=== PATIENT | male | born 1945 | race Caucasian/White ===

== ENCOUNTER 2024-03-12 13:09 | Outpatient (CLI) | payer MEDICARE, OTHER, SELFPAY | END 2024-03-12 13:10 | disposition home or self-care (01) | LOC: AMB 03-18 11:57 | PROVIDERS: PCP Family Medicine; Visit Provider Family Medicine | DX: K92.2 Gastrointestinal hemorrhage, unspecified (principal) | CPT/HCPCS: A0425; A0427 ==

== ENCOUNTER 2024-04-25 16:45 | Outpatient (CLI) | payer MEDICARE, OTHER, SELFPAY | END 2024-04-25 16:46 | disposition home or self-care (01) | LOC: AMB 05-04 06:32 | PROVIDERS: PCP Family Medicine; Visit Provider Emergency Medicine | DX: R07.89 Other chest pain (principal) | CPT/HCPCS: A0425; A0427 ==

== ENCOUNTER 2024-04-25 17:08 | Emergency (ER) | payer MEDICARE, OTHER, SELFPAY ==
[2024-04-25] VITALS (23 sets, daily range): BP systolic 172–205; BP diastolic 83–106; PULSE 60–68; RESP 14–24; TEMP 36.7; O2SAT 94–97
--- OUTSIDE RECORDS SUMMARY | 2024-04-25 17:11 | XMS_ITS | Clinical Summary ---
Author Organization [employer] [facility] Address [place], [place] [address] Care Team Providers Care Gang Investigator Name Role Phone Adryan Garcia MD Unavailable [phone] Jason Miller MD Primary Care Provider Allergies Active Allergy Reactions Criticality Noted Date Comments Venom-Honey Bee Chest Pain 09/19/2010 Clindamycin GI Upset 05/05/2007 Dapsone Other - Describe In Comment Field 03/30/2012 decreased O2 level and chest tightness Hylan G-F 20 Edema 11/28/2016 Iodinated Contrast Media Rash 04/04/2003 Diatrizoate Allergen Hives 10/23/2007 Lisinopril Intolerance-Can't Take 02/10/2017 Cough Clopidogrel Rash 10/23/2007 Primidone Nightmares 08/10/2013 Medications OMEPRAZOLE 20 MG CAP, DELAYED RELEASE take 1 capsule (20 mg) by oral route once daily before a meal 0 7 Active losartan (COZAAR) 100 mg tabletIndicatio ns:hypertension Take 1 tablet by mouth once daily. Indications: hypertension 90 tablet 3 7 Active hydroCHLOROthia zide (HCTZ) 25 mg tabletIndicatio ns:Hypertension Take 1 tablet by mouth once daily. 90 tablet 3 7 Active metoprolol (LOPRESSOR) 100 mg tablet Take 50 mg by mouth 2 times daily. 0 Active aspirin (ECOTRIN) 81 mg enteric coated tablet TAKE ONE TABLET BY MOUTH ONCE A DAY TO HELP PREVENT HEART ATTACK/STROKE Active levothyroxine (SYNTHROID) 175 mcg tablet TAKE ONE TABLET BY MOUTH EVERY MORNING ON AN EMPTY STOMACH FOR THYROID Active rosuvastatin (CRESTOR) 5 mg tablet Take 5 mg by mouth at bedtime. Active QUEtiapine (SEROQUEL) 400 mg tablet Take 400 mg by mouth once daily. 0 Active clotrimazole (LOTRIMIN) 1 % cream Apply a moderate amount to affected area daily for fungal infection of foot and ankels Active risperiDONE (RISPERDAL) 0.25 mg tablet Take 0.125 mg by mouth at bedtime. Active benztropine (COGENTIN) 1 mg tabletIndicatio ns:Tremor Take 2mg in the AM and 1mg at bedtime 0 2 Active Active Problems Problem Noted Date Diagnosed Date Food impaction of esophagus 10/15/2021 Microcytic anemia 09/28/2020 Melena 09/06/2020 Chest pain in adult 09/05/2020 Hallucinations 09/05/2020 Familial tremor 02/10/2017 Polyp of colon 06/03/2016 Fatty liver 08/17/2015 Post-traumatic osteoarthritis of right knee 12/23 Obesity 10/19/2013 Other psoriasis 06/01/2012 Gout 11/14/2011 History of gastrointestinal bleeding 11/14/2011 Overview (11/14/2011): [facility]: found to have bleeding diverticula on colonoscopy Hyperlipidemia 02/20/2010 Essential hypertension 02/20/2010 ASHD (arteriosclerotic heart disease) Overview (11/14/2011): Stent placed ~ 1999, angioplasty 2011 PAD (peripheral artery disease) Overview (11/14/2011): Bilateral stent placement. S/P angioplasty as well. Syncope Resolved Problems Problem Noted Date Diagnosed Date Resolved Date Hallucination 03/27/2017 09/05/2020 Hematochezia 04/17/2016 09/05/2020 Pain 01/12/2015 09/05/2020 Rash and other nonspecific skin eruption 03/04/2012 10/19/2013 Encounters Date Type Department Care Team Description 01/23/2024 Lab Requisition [facility] [phone] Justice Rios MD from Last 3 Months Immunizations Name Administration Dates Next Due AMB Influenza, IIV3 (Age >=3 years)(Flu Clinic Only) 01/22/2011,12/31/2008 COVID-19 vaccine (AdexLink-CasterStats NTech 30mcg/0.3mL) 12YO+ REID-SUCROSE PF, MDV 11/22/2021,06/06/2021 COVID-19 vaccine (E-Line Media NTech 30mcg/0.3mL) PF, MDV 10/24/2020,10/03/2020 Influenza A (H1N1), Inactivated 03/30/2009 Influenza Virus, Unspecified 12/26/2020, 12/06/2013,11/22/2012,2011,01/22/2011,01/09/2010,01/08/2008,1 ,01/15/2006,03/28/2005, 004,12/23/2003,01/22/2003,12/22/2002, Influenza, High-dose Inactivated 019,12/04/2017,12/09/2016,2015,01/12/2015 Influenza, High-dose Quadriv alent Inactivated 12/26/2020,12/13/2019 Influenza, IIV3 (Age >=3 years) 12/25/2011,12/23 Influenza, IIV4 12/08/2012 Pneumococcal Poly,23-Valent (Pneumovax) 10/24/2014,03/25/2010 Pneumococcal conj 13-Valent (Prevnar 13) 04/17/2016 Pneumococcal, Unspecified 03/28/2005 Tdap 07/07/2013 Tetanus Toxoid, Unspecified 01/11/1999 Zoster (Shingrix-RZV, recombinant) 06/06/2021, Family History Medical History Relation Name Comments Cancer Brother bladder Cancer Father colon, mets to liver Cancer Mother breast Cancer Sister 1 brain Cancer Sister 2 ?liver Cancer Sister 3 thyroid Relation Name Status Comments Brother Father Mother Sister 1 Sister 2 Sister 3 Social History Tobacco Use Types Packs/Day Years Used Date Smoking Tobacco: Former Cigarettes 1 50 0 09/07/1958 - 09/07/2008 Smokeless Tobacco: Never Tobacco Cessation:Counseling Given: No Comments:no passive exposure Alcohol Use Standard Drinks/Week Comments Yes 0 (1 standard drink = 0.6 oz pur e alcohol) very rare PHQ-2 Answer Date Recorded PHQ-2 TOTAL SCORE 2 06/06/2021 Social Connections Answer Date Recorded Frequency of Communication with Friends and Fami ly Not on file 03/24/2021 Financial Resource Strain Answer Date R ecorded Difficulty of Paying Living Expenses Not on file 03/24/2021 Difficulty of Paying Living Expenses Not on file 03/24/2021 Interpersonal Safety Answer Date Record ed Are you being hit, kicked, p ushed or yelled at (see row info)? 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[employer] Gender Identity Not on file Sexual Orientation Not on file Obstetrics History Last Filed Vital Signs Vital Sign Reading Time Taken Comments Blood Pressure 151/68 07/14/2023 9:00 PM CDT Pulse 78 07/14/2023 9:00 PM CDT Temperature 36.6 C (97.9 F) 07/14/2023 9:00 PM CDT Respiratory Rate 16 07/14/2023 9:00 PM CDT Oxygen Saturation 94% 07/14/2023 9:00 PM CDT Inhaled Oxygen Concentration - - Weight 99.8 kg (220 lb) 07/14/2023 9:00 PM CDT Height 177.8 cm (5' 10) 07/14/2023 9:00 PM CDT Body Mass Index 31.57 07/14/2023 9:00 PM CDT Plan of Treatment Health Maintenance Due Date Last Done Comments Low Dose CT (for lung CA) ag e 50-80 09/14/1993 Medicare Wellness for age 65+ 09/14/2008 RSV vaccine for adults or (1 - 1-dose 75+ series) 09/14/2018 BMI (ht and wt on same day) for age 18+ 09/12/2021 09/12/2020, 09/11/2016, 07/07/2016, Additional history exists Depression screening for age 12+ 06/06/2022 06/06/2021, 03/27/2017, 02/10/2017 Tetanus booster 07/08/2023 07/07/2013, 04/24 (Declined) COVID-19 vaccine series ( season) 2023 10/07/2022, 06/06/2022, 11/22/2021, Additional history exists Influenza for age 65+ 11/23/2023 12/26/2020 , 12/26/2020, 12/13/2019, Additional history exists Tdap Completed 07/07/2013 Pneumococcal series for age 50+ Completed 04/17/2016, 10/24/2014, 03/25/2010, Additional history exists Zoster (shingles) series for age 50+ Completed 06/06/2021, 12/26/2020 Procedures Procedure Name Priority Date/Time Associated Diagnosis Comments RED CELL MORPHOLOGY Routine 01/27/2024 1 1:35 AM BIRDCAGE ASSEMBLER Anemia, unspecified Chronic kidney disease, stage 3a (HC) Hypothyroidism, unspecified PLATELET ESTIMATE Routine 01/27/2024 11: 35 AM [employer]IRDCAGE ASSEMBLER Anemia, unspecified Chronic kidney disease, stage 3a (HC) Hypothyroidism, unspecified MANUAL DIFFERENTIAL Routine 01/27/2024 1 1:35 AM BIRDCAGE ASSEMBLER Anemia, unspecified Chronic kidney disease, stage 3a (HC) Hypothyroidism, unspecified CBC WITH AUTO DIFFERENTIAL Routine 01/27/2024 11:35 AM BIRDCAGE ASSEMBLER Anemia, unspecified Chronic kidney disease, stage 3a (HC) Hypothyroidism, unspecified BASIC METABOLIC PANEL Routine 01/27/2024 11:35 AM B[employer]DCAGE ASSEMBLER Anemia, unspecified Chronic kidney disease, stage 3a (HC) Hypothyroidism, unspecified TSH Routine 01/27/2024 11:35 AM BIRDCAGE ASSEMBLER Anemia, unspecified Chronic kidney disease, stage 3a (HC) Hypothyroidism, unspecified CBC WITH AUTO DIFFERENTIAL Routine 01/27/2024 11:35 AM BIRDCAGE ASSEMBLER Anemia, unspecified Chronic kidney disease, stage 3a (HC) Hypothyroidism, unspecified from Last 3 Months Results * (ABNORMAL) CBC WITH AUTO DIFFERENTIAL (01/27/2024 11:35 AM BIRDCAGE ASSEMBLER) WHITE BLOOD COUNT 8.6 4.5 - 11.0 thou/cu mm 01/27/2024 12:43 PM [facility] RED BLOOD COUNT 4.31 4.30 - 5.90 mil/cu mm 01/27/2024 12:43 PM [facility] HEMOGLOBIN 11.7(L) 13.5 - 17.5 g/dL 01/27/2024 12:43 PM [facility] HEMATOCRIT 37.7 37.0 - 53.0 % 01/27/2024 12:43 PM [facility] MCV 88 80 - 100 fL 01/27/2024 12:43 PM [facility] MCH 27.1 26.0 - 34.0 pg 01/27/2024 12:43 PM [facility] MCHC 31.0(L) 32.0 - 36.0 g/dL 01/27/2024 12:43 PM [facility] RDW 15.4 11.5 - 15.5 % 01/27/2024 12:43 PM [facility] PLATELET COUNT 386 140 - 440 thou/cu mm 01/27/2024 12:43 PM [facility] MPV 9.1 6.5 - 11.0 fL 01/27/2024 12:43 PM [facility] Blood BLOOD SPECIMEN / Unknown Butterfly / Unknown 01/27/2024 11:35 AM [employer]DCAGE AS[employer]BLER 01/27/2024 11:57 AM [employer]DCAGE ASSEMBLER us Justice Rios MD HEMATOLOGY Final Result [facility] [address] [place] [address] * (ABNORMAL) RED CELL MORPHOLOGY (01/27/2024 11:35 AM BIRDCAGE ASSEMBLER) [facility] ELLIPTOCYTES Few 01/27/2024 12:43 PM [facility] RBC COMMENT Present(A ) RBC morphology appears normal, RBC morphology within normal limits for newborns. 01/27/2024 12:43 PM [facility] Blood BLOOD SPECIMEN / Unknown Butterfly / Unknown 01/27/2024 11:35 AM B[employer]DCAGE ASSEMBLER 01/27/2024 11:57 AM [employer]DCAGE ASSEMBLER Justice Rios MD HEMATOLOGY Final Result Performing Organization Address City/[facility]/ZIP Co de Phone Number [facility] [address] [place] [address] * PLATELET ESTIMATE (01/27/2024 11:35 AM BIRDCAGE ASSEMBLER) PLATELET ESTIMATE Adequate Adequate, No estimate 01/27/2024 12:43 PM [facility] Blood BLOOD SPECIMEN / Unknown Butterfly / Unknown 01/27/2024 11:35 AM BIRDCAGE ASSEMBLER 01/27/2024 11:57 AM B[employer]DCAGE ASSEMBLER Justice Rios MD HEMATOLOGY Final Result Performing Organization Address [facility] Co de Phone Number [facility] [address] [place] [address] * (ABNORMAL) MANUAL DIFFERENTIAL (01/27/2024 11:35 AM BIRDCAGE ASSEMBLER) % NEUTROPHILS 74.0 % 01/27/2024 12:43 PM [facility] % LYMPHOCYTES 13.0 % 01/27/2024 12:43 PM [facility] % MONOCYTES 4.0 % 01/27/2024 12:43 PM [facility] % EOSINOPHILS 9.0 % 01/27/2024 12:43 PM [facility] % BASOPHILS 0.0 % 01/27/2024 12:43 PM [facility] NEUTROPHILS ABSOLUTE 6.4 1.7 - 7.0 thou/cu mm 01/27/2024 12:43 PM [facility] LYMPHOCYTES ABSOLUTE 1.1 0.9 - 2.9 thou/cu mm 01/27/2024 12:43 PM [facility] MONOCYTES ABSOLUTE 0.3 <0.9 thou/cu mm 01/27/2024 12:43 PM [facility] EOSINOPHILS ABSOLUTE 0.8(H) <0.5 thou/cu mm 01/27/2024 12:43 PM BIRDCAGE ASSEMBLER [facility] BASOPHILS ABSOLUTE 0.0 <0.3 thou/cu mm 01/27/2024 12:43 PM BIRDCAGE ASSEMBLER [facility] Blood BLOOD SPECIMEN / Unknown Butterfly / Unknown 01/27/2024 11:35 AM BIRDCAGE ASSEMBLER 01/27/2024 11:57 AM BIRDCAGE ASSEMBLER Justice Rios MD HEMATOLOGY Final Result Performing Organization Address [facility] de Phone Number [facility] [address] [place] [address] * TSH (01/27/2024 11:35 AM BIRDCAGE ASSEMBLER) TSH 3.28 0.27 - 4.20 uIU/mL 01/27/2024 12:28 PM B[employer]DCAGE ASSEMBLER [facility] Blood BLOOD SPECIMEN / Unknown Butterfly / Unknown 01/27/2024 11:35 AM BIRDCAGE ASSEMBLER 01/27/2024 11:57 AM BIRDCAGE ASSEMBLER Narrative [facility] - 01/27/2024 12:28 PM BIRDCAGE ASSEMBLER In Adults, TSH values between 5.00 and 10.00 uIU/ml do not necessarily indicate the presence of Hypothyroidism. Correlation with clinical findings such as presence of goiter and/or Thyroperoxidase (TPO) Antibody may be helpful. For more information please refer to [place] 2004; 291: [phone]. us Justice Rios MD CHEMISTRY Final Result Performing Organization Address [facility] Co de Phone Number [facility] [address] [place] [address] * (ABNORMAL) BASIC METABOLIC PANEL (01/27/2024 11:35 AM BIRDCAGE ASSEMBLER) SODIUM 144 136 - 145 mmol/L 01/27/2024 12:28 PM BIRDCAGE ASSEMBLER [facility] POTASSIUM 3.9 3.5 - 5.1 mmol/L 01/27/2024 12:28 PM [facility] CHLORIDE 106 98 - 107 mmol/L 01/27/2024 12:28 PM [facility] CO2,TOTAL 23 22 - 29 mmol/L 01/27/2024 12:28 PM [facility] ANION GAP 15 5 - 18 01/27/2024 12:28 PM [facility] GLUCOSE 112(H) 70 - 99 mg/dL 01/27/2024 12:28 PM [facility] CALCIUM 9.2 8.8 - 10.4 mg/dL 01/27/2024 12:28 PM [facility] Comment: Reference ranges for this test were updated on 01/27/2024 to reflect our healthy population more accurately. Reference range changes are not retroactively applied to results, but previous results using the same methodology can be interpreted in the context of the new reference range. BUN 13 8 - 23 mg/dL 01/27/2024 12:28 PM [facility] CREATININE 1.54(H) 0.70 - 1.20 mg/dL 01/27/2024 12:28 PM [facility] BUN/CREAT RATIO 8(L) 10 - 20 12:28 PM [facility] eGFR 45(L) >90 mL/min/1. 73m2 01/27/2024 12:28 PM [facility] Comment:As of 2021, eG FR is calculated by the CKD-EPI creatinine equation without race adjustment. eGFR can be influenced by muscle mass, exercise, and diet. The reported eGFR is an estimation only and is only applicable if the renal function is stable. Blood BLOOD SPECIMEN / Unknown Butterfly / Unknown 01/27/2024 11:35 AM BIRDCAGE ASSEMBLER 01/27/2024 11:57 AM BIRDCAGE ASSEMBLER us Justice Rios MD CHEMISTRY Final Result [facility] [address] [place] [address] from Last 3 Months Insurance MEDICARE PB ONLY [facility] MEDICARE PART B HB ONLY [facility] MEDICARE PROVIDER BASED [facility] [place] [address] [address] Member Subscriber Plan / Payer (Ef fective for All Dates) Name:Praveen Ambrosio Relation to Subscriber:Self Name:Praveen Ambrosio Payer ID:Not on file Group ID:Not on file Type:Not on file Address: [facility] [address] Advance Directives * Full Code (Latest Code Status on File) Date Activated Date Inactivated Comments 10/15/2021 1:36 PM 10/15/2021 6:00 PM Question Answer Comments Code Status Discussion: Discussed * Full Code Date Activated Date Inactivated Comments 09/28/2020 12:47 PM 09/28/2020 6:36 PM Question Answer Comments Code Status Discussion: Discussed * Full Code Date Activated Date Inactivated Comments 09/05/2020 8:48 PM 09/07/2020 4:06 PM Question Answer Comments Code Status Discussion: Discussed * Full Code Date Activated Date Inactivated Comments 06/03/2016 9:48 AM 06/03/2016 2:38 PM Care Teams Gang Investigator Relationship Specialty Start Date End Date Jason Miller MD [address] [facility] [address] [place] [address] PCP - General Family Practice 08/09/15 Adryan Garcia MD [address] [place] [id number] Orthopedics Surgery - Orthopedic 05/21/11
--- NOTE | 2024-04-25 17:45 | CRLHL7_ITS ---
For Patients: As a result of the Century Cures Act, medical imaging exams and procedure reports are released immediately into your electronic medical record. You may view this report before your referring provider. If you have questions, please contact your health care provider. INDICATION: Dyspnea on exertion. TECHNIQUE: Chest radiographs, 2 views. COMPARISON: None. FINDINGS: Cardiovascular/Mediastinum: Normal heart size. Unremarkable. Lungs: No focal consolidation. Ill-defined 15 mm left mid lung zone pulmonary nodule. Airways: Trachea remains midline. Pleura: No pleural effusions or pneumothorax. Bones: No acute osseous abnormalities. Upper abdomen: Unremarkable. IMPRESSION: 1. 15 mm pulmonary nodule in the left midlung zone, indeterminate. Recommend CT for improved characterization. 2. No acute intrathoracic findings. Dictated by Pawel Encinas MD @ 04/25/2024 6:14:39 PM (Electronically Signed)
--- NOTE | 2024-04-25 18:05 | ED.GENADULT ---
HPI - General Adult General Date Seen: 04/25/24 Chief complaint: Unspecified Complaint, Adult Stated complaint: Chest Pains Time Seen by Provider: 04/25/24 17:31 History of Present Illness HPI narrative: Patient is an 78-year-old resident of [facility] who comes in by ambulance after an episode of chest tightness. Apparently he had been using some exercise bands early in the day, and then around 45 minutes prior to arrival developed what he describes as tightness in his chest and a funny feeling in his left arm. At some point EN route to the hospital these symptoms resolved and he says he feels fine now. He says he felt short of breath at the time because of chest felt so tight. He did not note diaphoresis or nausea. He had been having problems with dark stools and some bright red blood in the stool and had a colonoscopy last fall. He reports that he still sometimes has black stools, for example he says he is going to the bathroom 3 times today, the 1st 1 was block in the 2nd 2 were not. Colonoscopy results reviewed. He is not anticoagulated. I noticed that he does take iron supplementation. He denies other symptoms such as fever, cough, vomiting, diarrhea. Related Data Home Medications ?Medication ?Instructions ?Recorded ?Confirmed amlodipine 04/25/24 quetiapine 04/25/24 Allergies Allergy/AdvReac Type Severity Reaction Status Date / Time clindamycin Allergy Verified 04/25/24 17:45 clopidogrel (From Plavix) Allergy Verified 04/25/24 17:45 dapsone Allergy Verified 04/25/24 17:45 hyaluronic acid (From Allergy Verified 04/25/24 17:45 Hyalgan) hylan G-F 20 Allergy Verified 04/25/24 17:45 Iodinated Contrast Media Allergy Verified 04/25/24 17:45 lisinopril Allergy Verified 04/25/24 17:45 primidone Allergy Verified 04/25/24 17:45 bee sting Allergy Uncoded 04/25/24 17:45 Review of Systems Status of ROS: Reports: 10 or more systems reviewed and unremarkable except as noted in History and below [facility] Social History Smoking Status: Former smoker How often do you have a drink containing alcohol: never AUDIT-C Alcohol total score: 0 Non-prescribed substance use: denies use Exam Narrative: Exam Narrative: Vital signs reviewed In general, alert, nontoxic elderly male. Hard of hearing. Head: Normocephalic, atraumatic. Eyes: Sclera clear. Pupils equal and reactive. ENT: Mucous membranes moist. Neck: Supple without adenopathy. Heart: Regular rate and rhythm without murmur. Lungs: Clear. No increased work of breathing, crackles or wheezes. Abdomen: Soft, nontender to palpation. Extremities: Well perfused, pulses intact. No significant edema. Neurologic: Alert, conversant. Speech fluent, face symmetric. Moves all extremities equally. Skin: Warm, dry well perfused. Affect: Normal. Const: Vital Signs, click to edit/add: Vital Signs - 24 hr 04/25/24 17:14 Temperature 98.1 F Pulse Rate [Left P ulse Oximeter] 64 Respiratory Rate 16 Blood Pressure [Ri ght Upper Arm] 187/89 H Pulse Oximetry 95 Oxygen Delivery Me thod Room Air Course Course ED Course: He had an EKG on arrival. By my review this shows a sinus rhythm, ventricular rate of 64. QRS is wide at 144 milliseconds, right bundle-branch block morphology. I do not see acute ST segment changes, T-waves are unremarkable. Point of care troponin is pending. Diagnostic considerations include acute coronary syndrome, angina, pneumonia, viral illness, PE, pneumothorax, aortic pathology among others. He is however at this time completely comfortable and asymptomatic. Initial troponin as well as a 2 hour repeat troponin is 0.01. No evidence of acute coronary syndrome. Angina remains a possibility. His D-dimer was negative. He has had these dark stools for months now, his hemoglobin is 12.9 so my suspicion of this being melena is quite low. I simply do not think he would have a hemoglobin of 13 if he had had melena for months. Recommend outpatient follow-up for this if this remains of concern. Dark stools may be related to his iron replacement. A nodule was seen on his chest x-ray with recommended chest CT. I did do the CT here. This looks like probable granuloma but 3 month follow-up is recommended to ensure stability. I have reviewed all of this with him, discussed that he will need outpatient follow-up to set up a repeat CT. I would recommend outpatient follow-up to further discuss chest pain and stress testing, as well as his ongoing concerns with dark stools. At this time, he is comfortable, pain-free, and I think it is reasonable to discharge. Return any time for severe or worsening symptoms. Vital Signs Vital signs: Initial Vital Signs Temperature 98.1 F 04/25/24 17:14 Temperature Source Temporal Artery Scan 04/25/24 17:14 Pulse Rate 62 04/25/24 17:14 Respiratory Rate 16 04/25/24 17:14 Blood Pressure 187/89 H 04/25/24 17:14 Blood Pressure Mean 121 H 04/25/24 17:14 Blood Pressure Position Semi-Fowlers 04/25/24 17:14 Pulse Oximetry 95 04/25/24 17:14 Oxygen Delivery Method Room Air 04/25/24 17:14 Vital Signs Temperature 98.1 F 04/25/24 17:14 Pulse Rate 62 04/25/24 17:14 Respiratory Rate 16 04/25/24 17:14 Blood Pressure 187/89 H 04/25/24 17:14 Pulse Oximetry 95 04/25/24 17:14 Oxygen Delivery Method Room Air 04/25/24 17:14 Temperature 98.1 F 04/25/24 17:14 Pulse Rate 63 04/25/24 20:15 Respiratory Rate 19 04/25/24 20:15 Blood Pressure 172/95 H 04/25/24 20:02 Pulse Oximetry 95 04/25/24 20:15 Oxygen Delivery Method Room Air 04/25/24 20:02 Medications Administered Medications: Discontinued Medications Generic Name Dose Route Start Last Admin Trade Name Freq PRN Reason Stop Dose Admin Aspirin 324 mg 04/25/24 17:43 04/25/24 18:12 Aspirin 81 Mg Tab.Chew PO 04/25/24 17:44 324 mg ONCE ONE Administration Metoprolol Tartrate 50 mg 04/25/24 20:03 04/25/24 20:32 Metoprolol Tartrate 50 Mg Tablet PO 04/25/24 20:04 50 mg ONCE ONE Administration Medical Decision Making Lab Data Labs: Lab Results 04/25/24 04/25/24 Range/Units 18:05 20:05 WBC 8.32 (4.50-11.00) K/uL RBC 4.78 (4.30-5.90) m/uL Hgb 12.9 L (13.5-17.5) gm/dL Hct 40.8 (37.0-53.0) % MCV 85 (80-100) fL MCH 27 (26-34) pg MCHC 32 (32-36) gm/dL RDW Coeff of Janey 16.7 H (11.5-15.5) % Plt Count 341 (140-440) K/uL Neut % (Auto) 69.0 (42.0-72.0) % Lymph % (Auto) 18.0 L (20-44) % Corson % (Auto) 9.1 (0.0-11.0) % Eos % (Auto) 3.1 (0.0-7.0) % Baso % (Auto) 0.4 (0.0-3.0) % Neut # (Auto) 5.74 (1.7-7.0) K/uL Lymph # (Auto) 1.50 (0.90-2.90) K/uL Corson # (Auto) 0.80 (0.00-0.90) K/UL Eos # (Auto) 0.26 (0.00-0.50) K/uL Baso # (Auto) 0.03 (0.00-0.30) K/uL Abs Immat Gran (auto) 0.03 (0.00-0.30) K/uL Imm/Tot Granulo (auto) 0.4 % D-Dimer Quant (PE/DVT) 0.47 (0.00-0.50) ug/ml Sodium 141 (135-149) mmol/L Potassium 3.7 (3.6-5.1) mmol/L Chloride 106 (96-114) mmol/L Carbon Dioxide 24 (20-32) mmol/L Anion Gap 11 (7-15) mEq/L BUN 18 (7-30) mg/dL Creatinine 1.6 H (0.5-1.5) mg/dL Estimated GFR 43 ml/min Glucose 97 (60-115) mg/dL Calcium 9.0 (8.4-10.6) mg/dL Total Bilirubin 0.6 (0.1-1.5) mg/dL Direct Bilirubin 0.1 (0.0-0.5) mg/dL AST 21 (12-35) U/L ALT 12 (4-50) U/L Alkaline Phosphatase 102 (40-150) U/L C-Reactive Protein 0.6 (0.5-1.0) mg/dL NT-Pro-B Natriuret Pep 831 pg/mL Total Protein 7.2 (6.0-8.3) g/dL Albumin 4.2 (3.3-5.0) g/dL SARS-CoV-2 (PCR) Negative SARS-CoV-2 (Negative) Influenza Type A (PCR) Negative PCR FLU A (Negative) Influenza Type B (PCR) Negative PCR FLU B (Negative) RSV (PCR) Negative PCR RSV (Negative) POC Troponin I 0.01 0.01 (0.01-0.04) ng/ml Discharge Plan Discharge Clinical Impression: Chest pain, Incidental lung nodule Patient Disposition: Home w/ Parent or Adult Condition: Improved Instructions: Chest Pain (DC), Pulmonary Nodules (ED) Additional Instructions: Your evaluation here does not show any signs of a heart attack. If you have recurrent chest pain particularly if it is persistent, worsening, or associated with other symptoms like shortness of breath, nausea, sweating, you should return to the ER. Otherwise, you should be seen next week by your primary doctor as a stress test should likely be done. You have an incidental nodule on your CT scan. The significance of this is unknown, it may be a benign growth called a granuloma, but the radiologist recommends you have a repeat CT scan in 3 months to make sure that that is is stable. Your primary doctor should arrange for that as well. Prescriptions: No Action quetiapine amlodipine Follow Up/Referrals: Justice Rios MD [Primary Care Provider] - Stand Alone Forms: Frontstart Info Instructions
[2024-04-25] MEDS: ASPIRIN 81 MG TAB.CHEW 324 MG PO (18:12)
[2024-04-25 18:18] LABS: Basophils Absolute Auto 0.03 K/uL (0.00-0.30); Basophils Percent Auto 0.4 % (0.0-3.0); Eosinophils Absolute Auto 0.26 K/uL (0.00-0.50); Eosinophils Percent Auto 3.1 % (0.0-7.0); Hematocrit* 40.8 % (37.0-53.0); Hemoglobin* 12.9 gm/dL (13.5-17.5); Immature Granulocytes Abs Auto 0.03 K/uL (0.00-0.30); Immature Granulocytes Pct Auto 0.4 %; Mean Corpuscular HGB Conc 32 gm/dL (32-36); Mean Corpuscular Hemoglobin 27 pg (26-34); Mean Corpuscular Volume 85 fL (80-100); Monocytes Percent Auto 9.1 % (0.0-11.0); Neutrophils Absolute Auto 5.74 K/uL (1.7-7.0); Platelet Count* 341 K/uL (140-440); RDW Coefficient of Variation % 16.7 % (11.5-15.5); Red Blood Count* 4.78 m/uL (4.30-5.90); White Blood Count* 8.32 K/uL (4.50-11.00)
[2024-04-25 18:21] LABS: Slide Review Reflex No
[2024-04-25 18:22] LABS: Troponin, Point-of-Care* 0.01 ng/ml (0.01-0.04)
[2024-04-25 18:37] LABS: Albumin* 4.2 g/dL (3.3-5.0)
[2024-04-25 18:38] LABS: Chloride* 106 mmol/L (96-114); Sodium* 141 mmol/L (135-149)
[2024-04-25 18:39] LABS: Potassium* 3.7 mmol/L (3.6-5.1)
[2024-04-25 18:40] LABS: Aspartate Amino Transferase* 21 U/L (12-35); Bilirubin Direct* 0.1 mg/dL (0.0-0.5); Bilirubin Total* 0.6 mg/dL (0.1-1.5); Total Protein* 7.2 g/dL (6.0-8.3)
[2024-04-25 18:41] LABS: Alanine Aminotransferase* 12 U/L (4-50); Alkaline Phosphatase* 102 U/L (40-150); Creatinine* 1.6 mg/dL (0.5-1.5); Estimated Glomerular Filt Rate 43 ml/min
[2024-04-25 18:42] LABS: Anion Gap 11 mEq/L (7-15); Blood Urea Nitrogen* 18 mg/dL (7-30); Carbon Dioxide* 24 mmol/L (20-32); Glucose* 97 mg/dL (60-115)
[2024-04-25 18:45] LABS: C Reactive Protein* 0.6 mg/dL (0.5-1.0); D Dimer Quantitative* 0.47 ug/ml (0.00-0.50)
[2024-04-25 18:52] LABS: NT Pro B Type NatriureticPept* 831 pg/mL
[2024-04-25 18:56] LABS: PCR FLU A Negative PCR FLU A (Negative); PCR FLU B Negative PCR FLU B (Negative); PCR RSV Negative PCR RSV (Negative); SARS PCR* Negative SARS-CoV-2 (Negative)
--- NOTE | 2024-04-25 19:05 | CRLHL7_ITS ---
For Patients: As a result of the Century Cures Act, medical imaging exams and procedure reports are released immediately into your electronic medical record. You may view this report before your referring provider. If you have questions, please contact your health care provider. INDICATION: PULMONARY NODULE SEEN ON LT MID LUNG OF CXR ON 04/25/24. TECHNIQUE: CT chest without contrast. COMPARISON: Chest radiograph from the same day. FINDINGS: Lungs and pleura: 1 cm round pulmonary nodule within the lateral lingula corresponding to the abnormality on the comparison chest radiograph, with a questionable thin peripheral calcific rim. Few tiny calcified granulomata within the right upper lobe. No pleural effusions, pleural thickening, or pneumothorax. Heart and vasculature: Heart size is normal. Thoracic aorta and pulmonary artery are normal in caliber. Coronary artery and thoracic aorta atherosclerotic calcification. Lymph nodes/mediastinum: No mediastinal, hilar, or axillary adenopathy. Chest wall: No masses. Upper abdomen: No acute or significant findings. The gallbladder is absent. Bones: Unremarkable for age. IMPRESSION: 1. 1 cm round pulmonary nodule within the lateral lingula corresponding to the abnormality on the comparison chest radiograph, with a questionable thin peripheral calcific rim. This could represent a granuloma. However, because this is not definitive, recommend short interval follow-up chest CT in 3 months to evaluate for interval change. 2. Otherwise, unremarkable chest CT. Please note that all CT scans at this facility use dose modulation, iterative reconstruction, and/or weight-based dosing when appropriate to reduce radiation dose to as low as reasonably achievable. Dictated by Ady Salas MD @ 04/25/2024 7:53:21 PM (Electronically Signed)
--- OUTSIDE RECORDS SUMMARY | 2024-04-25 19:07 | XMS_ITS | Clinical Summary ---
Author Organization [employer] [facility] [employer] Address [place], [place] [address] Care Team Providers Care Manual Lathe Machinist Name Role Phone Adryan Garcia MD Unavailable [phone] Jason Miller MD Primary Care Provider Allergies [...] gastrointestinal bleeding 11/14/2011 Overview (11/14/2011): Admitted to [facility] 10/13: found to have bleeding diverticula on [...] Department Care Team Description 01/23/2024 Lab Requisition [facility] [phone] Justice Rios MD from Last 3 Months Immunizations Name Administration Dates Next Due AMB Influenza, IIV3 (Age >=3 years)(Flu Clinic Only) 01/22/2011,12/31/2008 COVID-19 vaccine ([employer] NTech 30mcg/0.3mL) 12YO+ REID-SUCROSE PF, MDV 11/22/2021,06/06/2021 COVID-19 vaccine (CRV NTech 30mcg/0.3mL) PF, MDV 10/24/2020,10/03/2020 Influenza A [...] on file Legal Sex Male 5:36 AM SANITARY ENGINEER Gender Identity Not on file Sexual Orientation [...] CELL MORPHOLOGY Routine 01/27/2024 1 1:35 AM SANITARY ENGINEER Anemia, unspecified Chronic kidney disease, stage 3a (HC) Hypothyroidism, unspecified PLATELET ESTIMATE Routine 01/27/2024 11: 35 AM SANITARY ENGINEER Anemia, unspecified Chronic kidney disease, stage 3a (HC) Hypothyroidism, unspecified MANUAL DIFFERENTIAL Routine 01/27/2024 1 1:35 AM SANITARY ENGINEER Anemia, unspecified Chronic kidney disease, stage 3a (HC) Hypothyroidism, unspecified CBC WITH AUTO DIFFERENTIAL Routine 01/27/2024 11:35 AM SANITARY ENGINEER Anemia, unspecified Chronic kidney disease, stage 3a (HC) Hypothyroidism, unspecified BASIC METABOLIC PANEL Routine 01/27/2024 11:35 AM SANITARY ENGINEER Anemia, unspecified Chronic kidney disease, stage 3a (HC) Hypothyroidism, unspecified TSH Routine 01/27/2024 11:35 AM SANITARY ENGINEER Anemia, unspecified Chronic kidney disease, stage 3a (HC) Hypothyroidism, unspecified CBC WITH AUTO DIFFERENTIAL Routine 01/27/2024 11:35 AM SANITARY ENGINEER Anemia, unspecified Chronic kidney disease, stage 3a (HC) Hypothyroidism, unspecified from Last 3 Months Results * (ABNORMAL) CBC WITH AUTO DIFFERENTIAL (01/27/2024 11:35 AM SANITARY ENGINEER) WHITE BLOOD COUNT 8.6 4.5 - 11.0 thou/cu mm 01/27/2024 12:43 PM [facility] RED BLOOD COUNT 4.31 4.30 - 5.90 mil/cu mm 01/27/2024 12:43 PM [facility] HEMOGLOBIN 11.7(L) 13.5 - 17.5 g/dL 01/27/2024 12:43 PM [facility] HEMATOCRIT 37.7 37.0 - 53.0 % 01/27/2024 12:43 PM [facility] MCV 88 80 - 100 fL 01/27/2024 12:43 PM [facility] MCH 27.1 26.0 - 34.0 pg 01/27/2024 12:43 PM [facility] MCHC 31.0(L) 32.0 - 36.0 g/dL 01/27/2024 12:43 PM [facility] RDW 15.4 11.5 - 15.5 % 01/27/2024 12:43 PM [facility] PLATELET COUNT 386 140 - 440 thou/cu mm 01/27/2024 12:43 PM [facility] MPV 9.1 6.5 - 11.0 fL 01/27/2024 12:43 PM [facility] Blood BLOOD SPECIMEN / Unknown Butterfly / Unknown 01/27/2024 11:35 AM SANITARY ENGINEER 01/27/2024 11:57 AM SANITARY ENGINEER us Justice Rios MD HEMATOLOGY Final Result [facility] [address] [place] [address] * (ABNORMAL) RED CELL MORPHOLOGY (01/27/2024 11:35 AM SANITARY ENGINEER) [facility] ELLIPTOCYTES Few 01/27/2024 12:43 PM [facility] RBC COMMENT Present(A ) RBC morphology appears normal, RBC morphology within normal limits for newborns. 01/27/2024 12:43 PM [facility] Blood BLOOD SPECIMEN / Unknown Butterfly / Unknown 01/27/2024 11:35 AM SANITARY ENGINEER 01/27/2024 11:57 AM SANITARY ENGINEER Justice Rios MD HEMATOLOGY Final Result Performing Organization Address City/[facility]/ZIP Co de Phone Number [facility] [address] [place] [address] * PLATELET ESTIMATE (01/27/2024 11:35 AM SANITARY ENGINEER) PLATELET ESTIMATE Adequate Adequate, No estimate 01/27/2024 12:43 PM [facility] Blood BLOOD SPECIMEN / Unknown Butterfly / Unknown 01/27/2024 11:35 AM SANITARY ENGINEER 01/27/2024 11:57 AM SANITARY ENGINEER Justice Rios MD HEMATOLOGY Final Result Performing Organization Address [facility] Co de Phone Number [facility] [address] [place] [address] * (ABNORMAL) MANUAL DIFFERENTIAL (01/27/2024 11:35 AM SANITARY ENGINEER) % NEUTROPHILS 74.0 % 01/27/2024 12:43 PM [facility] % LYMPHOCYTES 13.0 % 01/27/2024 12:43 PM [facility] % MONOCYTES 4.0 % 01/27/2024 12:43 PM [facility] % EOSINOPHILS 9.0 % 01/27/2024 12:43 PM [facility] % BASOPHILS 0.0 % 01/27/2024 12:43 PM [facility] NEUTROPHILS ABSOLUTE 6.4 1.7 - 7.0 thou/cu mm 01/27/2024 12:43 PM [facility] LYMPHOCYTES ABSOLUTE 1.1 0.9 - 2.9 thou/cu mm 01/27/2024 12:43 PM [facility] MONOCYTES ABSOLUTE 0.3 <0.9 thou/cu mm 01/27/2024 12:43 PM [facility] EOSINOPHILS ABSOLUTE 0.8(H) <0.5 thou/cu mm 01/27/2024 12:43 PM SANITARY ENGINEER [facility] BASOPHILS ABSOLUTE 0.0 <0.3 thou/cu mm 01/27/2024 12:43 PM SANITARY ENGINEER [facility] Blood BLOOD SPECIMEN / Unknown Butterfly / Unknown 01/27/2024 11:35 AM SANITARY ENGINEER 01/27/2024 11:57 AM SANITARY ENGINEER Justice Rios MD HEMATOLOGY Final Result Performing Organization Address [facility] de Phone Number [facility] [address] [place] [address] * TSH (01/27/2024 11:35 AM SANITARY ENGINEER) TSH 3.28 0.27 - 4.20 uIU/mL 01/27/2024 12:28 PM SANITARY ENGINEER [facility] Blood BLOOD SPECIMEN / Unknown Butterfly / Unknown 01/27/2024 11:35 AM SANITARY ENGINEER 01/27/2024 11:57 AM SANITARY ENGINEER Narrative [facility] - 01/27/2024 12:28 PM SANITARY ENGINEER In Adults, TSH values between 5.00 and 10.00 uIU/ml do not necessarily indicate the presence of Hypothyroidism. Correlation with clinical findings such as presence of goiter and/or Thyroperoxidase (TPO) Antibody may be helpful. For more information please refer to [place] 2004; 291: [phone]. us Justice Rios MD CHEMISTRY Final Result Performing Organization Address [facility] Co de Phone Number [facility] [address] [place] [address] * (ABNORMAL) BASIC METABOLIC PANEL (01/27/2024 11:35 AM SANITARY ENGINEER) SODIUM 144 136 - 145 mmol/L 01/27/2024 12:28 PM SANITARY ENGINEER [facility] POTASSIUM 3.9 3.5 - 5.1 mmol/L 01/27/2024 12:28 PM [facility] CHLORIDE 106 98 - 107 mmol/L 01/27/2024 12:28 PM [facility] CO2,TOTAL 23 22 - 29 mmol/L 01/27/2024 12:28 PM [facility] ANION GAP 15 5 - 18 01/27/2024 12:28 PM [facility] GLUCOSE 112(H) 70 - 99 mg/dL 01/27/2024 12:28 PM [facility] CALCIUM 9.2 8.8 - 10.4 mg/dL 01/27/2024 12:28 PM [facility] Comment: Reference ranges for this test were updated on 01/27/2024 to reflect our healthy population more accurately. Reference range changes are not retroactively applied to results, but previous results using the same methodology can be interpreted in the context of the new reference range. BUN 13 8 - 23 mg/dL 01/27/2024 12:28 PM [facility] CREATININE 1.54(H) 0.70 - 1.20 mg/dL 01/27/2024 12:28 PM [facility] BUN/CREAT RATIO 8(L) 10 - 20 12:28 PM [facility] eGFR 45(L) >90 mL/min/1. 73m2 01/27/2024 12:28 PM [facility] Comment:As of 2021, eG FR is calculated by the CKD-EPI creatinine equation without race adjustment. eGFR can be influenced by muscle mass, exercise, and diet. The reported eGFR is an estimation only and is only applicable if the renal function is stable. Blood BLOOD SPECIMEN / Unknown Butterfly / Unknown 01/27/2024 11:35 AM SANITARY ENGINEER 01/27/2024 11:57 AM SANITARY ENGINEER us Justice Rios MD CHEMISTRY Final Result [facility] [address] [place] [address] from Last 3 Months Insurance MEDICARE PB ONLY [facility] MEDICARE PART B HB ONLY [facility] MEDICARE PROVIDER BASED [facility] [place] [address] Member Subscriber Plan / Payer (Ef fective for All Dates) Name:Praveen Ambrosio Relation to Subscriber:Self Name:Praveen Ambrosio Payer ID:Not on file Group ID:Not on file Type:Not on file Address: [facility] [employer] [id number] Advance Directives * Full Code (Latest [...] 9:48 AM 06/03/2016 2:38 PM Care Teams Manual Lathe Machinist Relationship Specialty Start Date End Date Jason Miller MD [address] [facility] [address] [place] [place] [address] PCP - General Family Practice 08/09/15 Adryan Garcia MD [address] [address] Orthopedics Surgery - Orthopedic 05/21/11
[2024-04-25] MEDS: METOPROLOL TARTRATE 50 MG TABLET PO (20:32)
[2024-04-25 20:47] LABS: Troponin, Point-of-Care* 0.01 ng/ml (0.01-0.04)
--- NOTE | 2024-04-25 21:35 | ED.NURSE ---
Report given to staff at [facility] and also to daughter Geeta. Geeta is ill and in [place] and no other family is available for transfer. Pt wheelchair transport by ambulance back home.
== END 2024-04-25 21:30 | disposition home or self-care (01) ==
PROVIDERS: Emergency Provider Emergency Medicine; PCP Family Medicine
DX: R07.9 Chest pain, unspecified (principal)
CPT/HCPCS: 36415; 71045; 71250; 80048; 80076; 83880; 84484; 85025; 85379; 86140; 87637; 93005; 94761; 99284; 99285; A9270

== ENCOUNTER 2024-04-25 21:28 | Outpatient (CLI) | payer MEDICARE, OTHER, SELFPAY | END 2024-04-25 21:29 | disposition home or self-care (01) | LOC: AMB 05-04 06:42 | PROVIDERS: PCP Family Medicine; Visit Provider Family Medicine | DX: R07.9 Chest pain, unspecified (principal) | CPT/HCPCS: A0425; A0428 ==

== ENCOUNTER 2025-03-12 10:34 | Outpatient (CLI) | payer MEDICARE, OTHER, SELFPAY | END 2025-03-12 10:35 | disposition home or self-care (01) | PROVIDERS: PCP Family Medicine; Visit Provider Internal Medicine | DX: M54.9 Dorsalgia, unspecified (principal); R30.0 Dysuria | CPT/HCPCS: A0425; A0427 ==

== ENCOUNTER 2025-03-12 10:46 | Emergency (ER) | payer MEDICARE, OTHER, SELFPAY ==
[2025-03-12] VITALS (20 sets, daily range): BP systolic 93–177; BP diastolic 51–139; PULSE 64–98; RESP 18; TEMP 36.4; O2SAT 90–99
--- OUTSIDE RECORDS SUMMARY | 2025-03-12 10:48 | XMS_ITS | Clinical Summary ---
Author Organization [facility] Address [address] [place] [id number] Care Team Providers Care Job Coach Name Role Phone Adryan Garcia MD Unavailable [phone] Jason Miller MD Primary Care Provider Allergies Active AllergyReactionsCriticalityNoted DateCommentsVenom-Honey BeeChest Pain 09/19/2010ClindamycinGI Upset05/05/2007DapsoneOther - Describe In Comment Field 03/30/2012 decreased O2 level and chest tightness Hylan G-F 56Zhdli3111/28/2016Iodinated Contrast DqhhpYqev01/12/2004Diatrizoate VxmwecyeDeiqs35/01/2008LisinoprilIntolerance-Can't Take02/10/2017 Cough QjzvecfnmjuEwsu13/01/3562EjglxcuwyJipjkgvuxa70/20/2014 Medications MedicationSigDispense QuantityRefillsLast FilledStart DateEnd DateStatus OMEPRAZOLE 20 MG CAP, DELAYED RELEASE take 1 capsule (20 mg) by oral route once daily before a gwut050ctive losartan (COZAAR) 100 mg tablet Indications:hypertensionTake 1 tablet by mouth once daily. Indications: hypertension 90 tablet Active hydroCHLOROthiazide (HCTZ) 25 mg tablet Indications:HypertensionTake 1 tablet by mouth once daily. 90 tablet Active metoprolol (LOPRESSOR) 100 mg tablet Take 50 mg by mouth 2 times daily.05/25/2019Active aspirin (ECOTRIN) 81 mg enteric coated tablet TAKE ONE TABLET BY MOUTH ONCE A DAY TO HELP PREVENT HEART ATTACK/STROKEActive levothyroxine (SYNTHROID) 175 mcg tablet TAKE ONE TABLET BY MOUTH EVERY MORNING ON AN EMPTY STOMACH FOR THYROIDActive rosuvastatin (CRESTOR) 5 mg tablet Take 5 mg by mouth at bedtime.Active QUEtiapine (SEROQUEL) 400 mg tablet Take 400 mg by mouth once daily.12/28/2019Active clotrimazole (LOTRIMIN) 1 % cream Apply a moderate amount to affected area daily for fungal infection of foot and ankelsActive risperiDONE (RISPERDAL) 0.25 mg tablet Take 0.125 mg by mouth at bedtime.Active benztropine (COGENTIN) 1 mg tablet Indications:TremorTake 2mg in the AM and 1mg at wmcyfqu146ctive Active Problems ProblemNoted DateDiagnosed DateFood impaction of fpyqzfwdw25/25/2022Microcytic twhijm5009/28/20206298Qxoszn13/16/2021hest pain in adult09/05/2020Hallucinations 09/05/2020Familial kaydkz6102/10/2017Polyp of colon06/03/2016Fatty liver08/17/2015 Post-traumatic osteoarthritis of right knee01/12/20159792Hnqeucx57/29/2014Other sjseyfcbx14/11/0014Irqr07/23/2012History of gastrointestinal phckeqqr75/23/2012 Overview (11/14/2011): Admitted to [facility] 10/13: found to have bleeding diverticula on colonoscopy Ggypnrhpfrbqwr78/30/2010Essential crxkluoqopbb86/30/2010SHD (arteriosclerotic heart disease) Overview (11/14/2011): Stent placed ~ 1999, angioplasty 2011 PAD (peripheral artery disease) Overview (11/14/2011): Bilateral stent placement. S/P angioplasty as well. Syncope Resolved Problems ProblemNoted DateDiagnosed DateResolved BnzeQdkongbdsdkay61/04/ Uabwtdgyiuye27/25/ain01/12/1Rash and other nonspecific skin Immunizations ImmunizationAdministration DatesNext DueAMB Influenza, IIV3 (Age >=3 years)(Flu Clinic Only)01/22/2011,12/31/2008COVID-19 vaccine (Baton 30mcg/0.3mL) 12YO+ REID-SUCROSE PF, MDV09,2COVID-19 vaccine (BridgeCo-BioNTMedallia 30mcg/0.3mL) PF, MDV08,10/03/2020Influenza A (H1N1), Inactivated 03/30/2009Influenza Virus, Kbzwyabnkat66/05/2021,12/06/2013,11/22/2012, 01/23/2012,01/22/2011,01/09/2010,01/08/2008,01/12/2007,01/15/2006,03/28/2005, 01/24/2004,12/23/2003,01/22/2003,12/22/2002,01/22/2002Influenza, High-dose Hldjrjvznay22/18/2019,12/04/2017,12/09/2016,01/09/2016,01/12/2015Influenza, High-dose Quadrivalent Yimgeeerbsz36/05/2021,12/13/2019Influenza, IIV3 (Age >=3 years)12/25/2011,12/23/2002Influenza, VSS811Pneumococcal Poly,23-Valent (Pneumovax)10/24/2014,03/25/2010Pneumococcal conj 13-Valent (Prevnar 13) 04/17/2016Pneumococcal, Wjnwsajvzkj59/05/2952Pzyg33/16/2014Tetanus Toxoid, Ohfszisyfds57/21/1999Zoster (Shingrix-RZV, recombinant)06/06/2021,12/26/2020 Family History Medical HistoryRelationNameCommentsCancerBrotherbladderCancerFathercolon, mets to liverCancerMotherbreastCancerSister 1brainCancerSister 2?liverCancerSister 3 thyroidRelationNameStatusCommentsBrotherFatherMotherSister 1Sister 2Sister 3 Social History Tobacco UseTypesPacks/DayYears UsedDateSmoking Tobacco: FgdlodXjhriqqqxc459 09/07/1958 - 09/07/2008Smokeless Tobacco: Never Tobacco Cessation:Counseling Given: No Comments:no passive exposure Alcohol UseStandard Drinks/WeekCommentsYes0 (1 standard drink = 0.6 oz pure alcohol)very rarePHQ-2AnswerDate RecordedPHQ-2 TOTAL NUGMD957ocial ConnectionsAnswerDate RecordedFrequency of Communication with Friends and Family Not on file03/24/2021Financial Resource StrainAnswerDate RecordedDifficulty of Paying Living ExpensesNot on file03/24/2021ifficulty of Paying Living Expenses Not on file03/24/2021Interpersonal SafetyAnswerDate RecordedAre you being hit, kicked, pushed or yelled at (see row info)?No07/14/2023Interpersonal Safety Abuse 12 - 18Not on file07/14/2023Interpersonal Safety Ambulatory Vulnerability Not on file07/14/2023Sex and Gender InformationValueDate RecordedSex Assigned at BirthNot on fileLegal KzqPttl7404/06/2012 5:36 AM CSTGender IdentityNot on file Sexual OrientationNot on file Last Filed Vital Signs Vital SignReadingTime TakenCommentsBlood Lryiqjlf968/6804 9:00 PM CDT Javxx3956 9:00 PM OYMQbnkxmzqxlh13.6 ??C (97.9 ??F)07/14/2023 9:00 PM CDTRespiratory Jhpl245507/14/2023 9:00 PM CDTOxygen Olhzzkjyfn25%07/14/2023 9:00 PM CDTInhaled Oxygen Concentration--Recksh36.8 kg (220 lb)07/14/2023 9:00 PM CDT Xambet937.8 cm (5' 10)07/14/2023 9:00 PM CDTBody Mass Index31.57007/14/2023 9:00 PM CDT Plan of Treatment Health MaintenanceDue DateLast DoneCommentsMedicare Wellness for age 65+ 09/14/2008RSV vaccine for adults or (1 - 1-dose 75+ series)09/14/2018 BMI (ht and wt on same day) for age 18+/, 09/11/2016, 07/07/2016, Additional history existsDepression screening for age 12+06/06/2022 06/06/2021, 03/27/2017, 02/10/2017Tetanus lwugedh76/, 05/06/2011 (Declined)COVID-19 vaccine series ( season)2024 10/07/2022, 06/06/2022, 11/22/2021, Additional history existsInfluenza Vaccine (#1)510/07/2020, 12/09/2018, 12/04/2017, Additional history exists Pneumococcal series for age 50+Wbuyshrzv47/25/2017, 10/24/2014, 03/25/2010, Additional history existsZoster (shingles) series for age 50+Completed 06/06/2021, 12/26/2020Hepatitis B series for 19+Aged OutNo longer eligible based on patient's age to complete [place] [phone] Advance Directives * Full Code (Latest Code Status on File) Date ActivatedDate InactivatedComments10/15/2021 1:36 PM10/15/2021 6:00 PMQuestion AnswerCommentsCode Status Discussion:* Discussed * Full Code Date ActivatedDate InactivatedComments09/28/2020 12:47 PM09/28/2020 6:36 PMQuestion AnswerCommentsCode Status Discussion:* Discussed * Full Code Date ActivatedDate InactivatedComments09/05/2020 8:48 PM09/07/2020 4:06 PMQuestion AnswerCommentsCode Status Discussion:* Discussed * Full Code Date ActivatedDate InactivatedComments06/03/2016 9:48 AM06/03/2016 2:38 PM Care Teams Team MemberRelationshipSpecialtyStart DateEnd Date Jason Miller MD [address] [place] [id number] PCP - GeneralFamily Practice08/09/15 Adryan Garcia MD [address] [place] [address] [place] [id number] OrthopedicsSurgery - Orthopedic05/21/11
--- NOTE | 2025-03-12 11:21 | ED.GENADULT ---
HPI - General Adult General Chief complaint: Urogenital Problems, Male Stated complaint: Lower Back Pain Time Seen by Provider: 03/12/25 11:06 History of Present Illness HPI narrative: Patient is 79-year-old gentleman who comes in today with urinary frequency and dysuria. He lives had a memory care unit in was sent over by ambulance. Patient has had no fevers no chills no night sweats no cough no shortness of breath no change in his level of functioning. The burning in urination started today. He has noticed no hematuria. No other related complaints or concerns. Related Data Home Medications ?Medication ?Instructions ?Recorded ?Confirmed amlodipine 04/25/24 quetiapine 04/25/24 acetaminophen 500 mg capsule 1,000 mg PO TID PRN 03/12/25 03/12/25 amlodipine 10 mg tablet 10 mg PO DAILY 03/12/25 03/12/25 bisacodyl 5 mg tablet 5 mg PO BID 03/12/25 03/12/25 cyanocobalamin (vitamin B-12) 1,000 mcg PO DAILY 03/12/25 03/12/25 1,000 mcg capsule fluticasone propionate 50 2 spray intranasal DAILY 03/12/25 03/12/25 mcg/actuation nasal spray,suspension (24 Hour Allergy Relief) hydrochlorothiazide 25 mg tablet 25 mg PO DAILY 03/12/25 03/12/25 lamotrigine 200 mg tablet 200 mg PO DAILY 03/12/25 03/12/25 (Lamictal) levothyroxine 75 mcg capsule 75 mcg PO DAILY 03/12/25 03/12/25 losartan 100 mg tablet 100 mg PO DAILY 03/12/25 03/12/25 melatonin 5 mg capsule 6 mg PO HS 03/12/25 03/12/25 memantine 5 mg tablet 5 mg PO BID 03/12/25 03/12/25 omeprazole 40 mg capsule,delayed 40 mg PO DAILY 03/12/25 03/12/25 release quetiapine 25 mg tablet 25 mg PO DAILY 03/12/25 03/12/25 rosuvastatin 5 mg tablet 5 mg PO HS 03/12/25 03/12/25 tamsulosin 0.4 mg capsule 0.4 mg PO DAILY 03/12/25 03/12/25 thiamine HCl (vitamin B1) 100 mg 100 mg PO DAILY 03/12/25 03/12/25 capsule trazodone 50 mg tablet 25 mg PO HS PRN 03/12/25 03/12/25 Previous Rx's ?Medication ?Instructions ?Recorded ciprofloxacin HCl 250 mg tablet 250 mg PO BID #10 tabs 03/12/25 (Cipro) Allergies Allergy/AdvReac Type Severity Reaction Status Date / Time bee venom protein (honey bee) Allergy Unknown Verified 03/12/25 11:02 clindamycin Allergy Verified 03/12/25 11:02 clopidogrel (From Plavix) Allergy Verified 03/12/25 11:02 dapsone Allergy Verified 03/12/25 11:02 hyaluronic acid (From Allergy Verified 03/12/25 11:02 Hyalgan) hylan G-F 20 Allergy Verified 03/12/25 11:02 Iodinated Contrast Media Allergy Verified 03/12/25 11:02 lisinopril Allergy Verified 03/12/25 11:02 primidone Allergy Verified 03/12/25 11:02 Review of Systems Status of ROS: Reports: 10 or more systems reviewed and unremarkable except as noted in History and below PFSH PFS Social History Smoking Status: Former smoker How often do you have a drink containing alcohol: never AUDIT-C Alcohol total score: 0 Non-prescribed substance use: denies use Exam Narrative: Exam Narrative: EXAM GENERAL: Patient appears comfortable and well. EYES: No scleral icterus. LYMPH: No supraclavicular or cervical lymphadenopathy. SKIN: Visible skin seen during exam normal or with benign process only. EXT: No dependent lower extremity pedal edema. HEART: Regular rate and rhythm with no murmurs, rubs, or gallops. LUNGS: Clear to auscultation bilaterally with no crackles or wheezes. ABD: Soft, non tender, non distended. PSYCH: Good eye contact, speech is not pressured. Const: Vital Signs, click to edit/add: Vital Signs - 24 hr 03/12/25 10:52 03/12/25 10:53 03/12/25 10:55 Temperature 97.6 F Pulse Rate 76 71 Pulse Rate [Pulse Oximeter] 98 Respiratory Rate 18 Blood Pressure 165/127 H Blood Pressure [Ri ght Upper Arm] 165/107 H Pulse Oximetry 97 97 96 Oxygen Delivery Me thod Room Air 03/12/25 11:00 03/12/25 11:02 03/12/25 11:03 Temperature Pulse Rate 70 72 72 Pulse Rate [Pulse Oximeter] Respiratory Rate Blood Pressure 93/51 L Blood Pressure [Ri ght Upper Arm] Pulse Oximetry 93 94 94 Oxygen Delivery Me thod 03/12/25 11:15 03/12/25 11:17 03/12/25 11:18 Temperature Pulse Rate 73 73 74 Pulse Rate [Pulse Oximeter] Respiratory Rate Blood Pressure 177/139 H Blood Pressure [Ri ght Upper Arm] Pulse Oximetry 91 99 98 Oxygen Delivery Me thod 03/12/25 11:30 03/12/25 11:32 03/12/25 11:45 Temperature Pulse Rate 73 66 70 Pulse Rate [Pulse Oximeter] Respiratory Rate Blood Pressure 126/58 L Blood Pressure [Ri ght Upper Arm] Pulse Oximetry 93 92 96 Oxygen Delivery Me thod 03/12/25 12:00 03/12/25 12:01 03/12/25 12:15 Temperature Pulse Rate 71 64 Pulse Rate [Pulse Oximeter] Respiratory Rate Blood Pressure 125/88 Blood Pressure [Ri ght Upper Arm] Pulse Oximetry 92 90 Oxygen Delivery Me thod 03/12/25 12:32 Temperature Pulse Rate Pulse Rate [Pulse Oximeter] Respiratory Rate Blood Pressure 133/67 Blood Pressure [Ri ght Upper Arm] Pulse Oximetry Oxygen Delivery Me thod Course Course ED Course: Patient seen and examined. UA pending. Vital Signs Vital signs: Initial Vital Signs Pulse Rate 76 03/12/25 10:52 Blood Pressure 165/127 H 03/12/25 10:52 Blood Pressure Mean 139 H 03/12/25 10:52 Pulse Oximetry 97 03/12/25 10:52 Vital Signs Pulse Rate 76 03/12/25 10:52 Blood Pressure 165/127 H 03/12/25 10:52 Pulse Oximetry 97 03/12/25 10:52 Temperature 97.6 F 03/12/25 10:55 Pulse Rate 64 03/12/25 12:15 Respiratory Rate 18 03/12/25 10:55 Blood Pressure 133/67 03/12/25 12:32 Pulse Oximetry 90 03/12/25 12:15 Oxygen Delivery Method Room Air 03/12/25 10:55 Medical Decision Making MDM Narrative Medical decision making narrative: Patient presents with symptoms of dysuria and urinary frequency. He has an abnormal UA. His urine was sent for culture and we did place him on Cipro for the next 5 days. We return to the care home to continue current care. Lab Data Labs: Lab Results 03/12/25 Range/Units 12:35 Urine Color Dark yellow (Yellow) Urine Appearance Cloudy A (Clear) Urine pH 6.0 (5.0-8.5) Ur Specific [place] 1.020 (1.000-1.030) Urine Protein 2+ A (Negative) Urine Glucose (UA) Negative (Negative) Urine Ketones Negative (Negative) Urine Blood 2+ A (Negative) Urine Nitrite Negative (Negative) Urine Bilirubin Negative (Negative) Urine Urobilinogen 0.2 (0.2-1.0) Ur Leukocyte Esterase 3+ A (Negative) Urine RBC 2-5 A (0-2) Urine WBC >100 A (0-5) Ur Squamous Epith Cells Few (None-Few) Urine Bacteria Many A (None) Discharge Plan Discharge Clinical Impression: Urinary tract infection Patient Disposition: Home, Self-Care Condition: Stable Instructions: Urinary Tract Infection in Men (ED) Additional Instructions: Cipro as directed Continue current care Follow-up on care home rounds. Activity Level: No Restrictions Discharge Diet: Regular Prescriptions: New ciprofloxacin HCl [Cipro] 250 mg tablet 250 mg PO BID Qty: 10 0RF No Action quetiapine amlodipine amlodipine 10 mg tablet 10 mg PO DAILY cyanocobalamin (vitamin B-12) 1,000 mcg capsule 1,000 mcg PO DAILY fluticasone propionate [24 Hour Allergy Relief] 50 mcg/actuation spray,suspension 2 spray intranasal DAILY Rx Instructions: administer into each nostril hydrochlorothiazide 25 mg tablet 25 mg PO DAILY lamotrigine [Lamictal] 200 mg tablet 200 mg PO DAILY levothyroxine 75 mcg capsule 75 mcg PO DAILY losartan 100 mg tablet 100 mg PO DAILY melatonin 5 mg capsule 6 mg PO HS omeprazole 40 mg capsule,delayed release(DR/EC) 40 mg PO DAILY quetiapine 25 mg tablet 25 mg PO DAILY rosuvastatin 5 mg tablet 5 mg PO HS tamsulosin 0.4 mg capsule 0.4 mg PO DAILY thiamine HCl (vitamin B1) 100 mg capsule 100 mg PO DAILY trazodone 50 mg tablet 25 mg PO HS PRN bisacodyl 5 mg tablet 5 mg PO BID memantine 5 mg tablet 5 mg PO BID acetaminophen 500 mg capsule 1,000 mg PO TID PRN Follow Up/Referrals: Justice Rios MD [Primary Care Provider, Family Practice] Stand Alone Forms: [employer] Info Instructions
[2025-03-12 12:40] LABS: Appearance Urine Cloudy (Clear)
== END 2025-03-12 13:52 | disposition home or self-care (01) ==
PROVIDERS: Emergency Provider Internal Medicine; PCP Family Medicine
DX: N39.0 Urinary tract infection, site not specified (principal)
CPT/HCPCS: 81001; 81003; 87086; 99283

== ENCOUNTER 2025-03-12 13:34 | Outpatient (CLI) | payer MEDICARE, OTHER, SELFPAY | END 2025-03-12 13:35 | disposition home or self-care (01) | LOC: AMB 03-21 02:39 | PROVIDERS: PCP Family Medicine; Visit Provider Internal Medicine | DX: R53.1 Weakness (principal); N39.0 Urinary tract infection, site not specified | CPT/HCPCS: A0425; A0428 ==